=== PATIENT | male | born 1955 | race Two or more races ===

== ENCOUNTER 2018-04-07 13:45 | Emergency (ER) | payer OTHER ==
[~2018-04-07] VITALS: Ht 175.3 cm; Wt 58.1 kg
[2018-04-07 13:45] VITALS: BP 123/65
== END 2018-04-07 14:09 | disposition home or self-care (01) ==
LOC: ER 13:47
DX: L03.113 Cellulitis of right upper limb (principal)
CPT/HCPCS: 99283; A4606; Z7610